=== PATIENT | male | born 1990 | race Two or more races ===

== ENCOUNTER 2017-11-06 15:52 | Emergency (ER) | payer SELFPAY ==
[~2017-11-06] VITALS: Ht 172.7 cm; Wt 75.0 kg
[2017-11-06] MEDS ORDERED: BUPIVAcaine/PF 2.5 mg/ml (0.25%) 30ml vial IJ ONE (16:05)
[2017-11-06] MEDS ORDERED: TETanus/Pertussis (Acell)/Diphther VAC/PF (Tdap-Adult) 0.5ml syringe IM ONE (16:05)
[2017-11-06] MEDS ORDERED: BUPIVAcaine 2.5mg/ml inj 50ml vial (contains preservative) IJ ONE (16:25)
[2017-11-06] MEDS ORDERED: amox tr/potassium clavulanate 875/125mg TAB PO ONE (16:55)
[2017-11-06 17:02] VITALS: BP 139/80
[2017-11-06] MEDS ORDERED: AMOX-580 PO (17:14)
== END 2017-11-06 17:41 ==
LOC: ER 15:53
DX: Z02.89 Encounter for other administrative examinations (principal); S81.811A Laceration without foreign body, right lower leg, initial encounter; S81.831A Puncture wound without foreign body, right lower leg, initial encounter; S81.851A Open bite, right lower leg, initial encounter; F12.90 Cannabis use, unspecified, uncomplicated; W54.0XXA Bitten by dog, initial encounter; Y93.89 Activity, other specified; Y92.89 Other specified places as the place of occurrence of the external cause; Y99.9 Unspecified external cause status
CPT/HCPCS: 12001; 90471; 90715; 99283; A6255; A6446; J3490